=== PATIENT | male | born 1985 | race Caucasian/White ===

== ENCOUNTER 2017-02-02 19:00 | Emergency (ER) | payer OTHER ==
[~2017-02-02 19:00] MED LIST: ALBUTEROL17 GM INH; ALBUTEROL20 ml INH; AMOXICILLIN875 MG PO; FLEXERIL10 MG PO; ILOTYCIN1 G1 OP; MEDROL DOSEPAK4 MG PO; NAPROSYN500 MG PO; NO MEDICATIONS; PROMETHAZINE-D240 ML PO; TESSALON PERLE100 M1 PO; VOLTAREN75 MG PO; ZITHROMAX PO
[2017-02-02 19:50] LABS: URINE SOURCE CLEAN CATCH
[2017-02-02 19:52] LABS: BASOPHIL# 0.1 X10e3 (0-0.3); BASOPHIL% 0.9 % (0-2.5); EOSINOPHIL# 0.2 X10e3 (0-0.7); EOSINOPHIL% 1.9 % (0.0-7.0); HEMATOCRIT 47.2 % (38.0-50.0); HEMOGLOBIN 16.3 gm/dL (13.0-16.0); LYMPHOCYTE# 3.4 X10e3 (1.0-3.5); LYMPHOCYTE% 38.6 % (17.0-45.0); MEAN CELL VOLUME 88.7 FL (83-96); MEAN CORPUSCULAR HEMOGLOBIN 30.6 PG (28-34); MEAN CORPUSCULAR HGB CONC 34.5 g/dL (30-36); MEAN PLATELET VOLUME 6.8 FL (6.5-11.5); MONOCYTE# 0.6 X10e3 (0-1.0); MONOCYTE% 6.6 % (3.0-12.0); NEUTROPHIL# 4.5 X10e3 (1.5-7.1); PLATELET COUNT 209 X10e3 (140-420); RED BLOOD COUNT 5.33 X10e (3.90-5.60); RED CELL DISTRIBUTION WIDTH 13.9 % (11.0-15.5); URINE APPEARANCE CLEAR; URINE BILIRUBIN NEG (NEG); URINE BLOOD NEG (NEG); URINE COLOR YELLOW; URINE GLUCOSE NEG (NORM); URINE KETONE NEG (NEG); URINE LEUKOCYTE ESTERASE NEG (NEG); URINE NITRATE NEG (NEG); URINE PH 5.5 (5-8); URINE PROTEIN NEG (NEG); URINE UROBILINOGEN 0.2 MG/DL (NORM); WHITE BLOOD COUNT 8.7 X10e3 (4.0-10.5)
[2017-02-02 19:55] LABS: MICRO INDICATED? NO
[2017-02-02 19:57] LABS: DIFF IND NO
[2017-02-02 20:16] LABS: ALBUMIN SERUM 3.9 g/dL (3.5-5.0); ALKALINE PHOSPHATASE 52 U/L (32-92); ALT (SGPT) 12 U/L (10-40); AST (SGOT) 20 U/L (10-42); BILIRUBIN,TOTAL 0.4 mg/dL (0.2-2.0); BLOOD UREA NITROGEN 9 mg/dL (9-23); BUN/CREATININE RATIO 11.25; CALCIUM SERUM 8.9 mg/dL (8.4-10.2); CARBON DIOXIDE 27 mmol/L (22-31); CHLORIDE 102 mmol/L (100-111); CREATININE SERUM 0.8 mg/dL (0.6-1.4); GLOM FILT RATE Estimated 118.2 mL/min (>60); GLUCOSE FASTING 95 mg/dL (70-110); LIPASE 15 U/L (22-51); POTASSIUM 3.7 mmol/L (3.5-5.1); PROTEIN TOTAL SERUM 6.7 g/dL (6.0-8.3); SODIUM 137 mmol/L (135-145)
[2017-02-02 20:17] LABS: BILIRUBIN, DIRECT <0.1 mg/dL (0.0-0.2); BILIRUBIN,INDIRECT 0.3 mg/dL (0.0-0.9)
== END 2017-02-02 20:35 | disposition home or self-care (01) ==
LOC: SED 19:00
PROVIDERS: Emergency Medicine
DX: R10.9 Unspecified abdominal pain (principal); R19.7 Diarrhea, unspecified; R11.0 Nausea; F17.200 Nicotine dependence, unspecified, uncomplicated
CPT/HCPCS: 36415; 80048; 80076; 81003; 83690; 85025; 99284